=== PATIENT | female | born 1980 | race Caucasian/White ===

== ENCOUNTER 2017-07-09 09:26 | Outpatient (CLI) | payer OTHER | END 2017-07-09 09:34 | disposition home or self-care (01) | LOC: SONOGRAMA 09:26 | DX: N91.1 Secondary amenorrhea (principal) ==

== ENCOUNTER 2018-04-28 08:00 | Day surgery (SDC) | payer OTHER | END 2018-04-28 10:25 | disposition home or self-care (01) | LOC: AMB-ENDOS 08:00 | DX: R19.8 Other specified symptoms and signs involving the digestive system and abdomen (principal) ==

== ENCOUNTER 2018-06-01 07:18 | Outpatient (CLI) | payer OTHER | END 2018-06-01 10:21 | disposition home or self-care (01) | LOC: RAD | DX: M54.2 Cervicalgia (principal) ==

== ENCOUNTER 2018-09-02 10:16 | Outpatient (CLI) | payer OTHER | END 2018-09-02 10:33 | disposition home or self-care (01) | LOC: SONOGRAMA 10:16 | DX: N83.202 Unspecified ovarian cyst, left side (principal); R10.32 Left lower quadrant pain ==

== ENCOUNTER → 2019-12-26 | Outpatient (CLI) | payer OTHER ==
[~2019-12-26] VITALS: Ht 157.5 cm; Wt 69.9 kg
== END | disposition home or self-care (01) ==
LOC: OFIC 805 10:00
PROVIDERS: ATTEND Otolaryngology
DX: R22.1 Localized swelling, mass and lump, neck (principal); H66.92 Otitis media, unspecified, left ear

== ENCOUNTER → 2020-10-25 07:50 | Outpatient (CLI) | payer OTHER ==
[~2020-10-25 07:50] MED LIST: ADVIL PO; ZYRTEC10 M3 PO
== END | disposition home or self-care (01) ==
LOC: RAD 09-18 06:54
PROVIDERS: ATTEND Orthopaedic Surgery Hand Surgery
DX: S69.82XA Other specified injuries of left wrist, hand and finger(s), initial encounter (principal)

== ENCOUNTER 2020-12-17 06:00 | Day surgery (SDC) | payer OTHER | END 2020-12-17 12:15 | disposition home or self-care (01) | LOC: CIR.AMB 06:00 | PROVIDERS: ATTEND Orthopaedic Surgery Hand Surgery | DX: M24.832 Other specific joint derangements of left wrist, not elsewhere classified (principal); Z20.822 Contact with and (suspected) exposure to COVID-19 ==

== ENCOUNTER 2021-02-07 08:00 | Outpatient (CLI) | payer OTHER | END 2021-02-07 08:30 | disposition home or self-care (01) | LOC: PPH VACUNA 08:00 | PROVIDERS: ATTEND Emergency Medicine Pediatric Emergency Medicine | DX: Z23 Encounter for immunization (principal) ==

== ENCOUNTER 2021-05-09 08:41 | Outpatient (CLI) | payer OTHER | END 2021-05-09 08:45 | disposition home or self-care (01) | LOC: LAB 08:41 | PROVIDERS: ATTEND Surgery | DX: Z03.818 Encounter for observation for suspected exposure to other biological agents ruled out (principal) ==

== ENCOUNTER 2022-07-09 13:26 | Outpatient (CLI) | payer OTHER | END 2022-07-09 15:11 | disposition home or self-care (01) | LOC: RAD 13:26 | PROVIDERS: ATTEND Surgery | DX: Z02.89 Encounter for other administrative examinations (principal); Z02.79 Encounter for issue of other medical certificate ==